=== PATIENT | male | born 1950 | race Hispanic/Latino ===

== ENCOUNTER → 2023-03-08 | Outpatient (CLI) | payer MEDICARE | LOC: RAD 09:31 | PROVIDERS: ATTEND Internal Medicine | DX: R05.9 Cough, unspecified (principal); U07.1 COVID-19 | CPT/HCPCS: 71046 ==

== ENCOUNTER 2023-10-11 19:29 | Emergency (ER) | payer MEDICARE ==
[~2023-10-11] VITALS: Ht 157.5 cm; Wt 61.7 kg
[~2023-10-11 19:29] MED LIST: ATORVASTATIN CA10 MG PO; BUSPIRONE HCL5 MG PO; FLOMAX0.4 MG PO; METFORMIN HCL500 MG PO; NAMENDA5 MG PO; OLMESARTAN-HCT1 EAC2 PO; OMEGA 3 FISH O1 EACH PO; OMEPRAZOLE40 MG PO
[2023-10-11] MEDS ORDERED: IBUPROFEN 600 MG TAB PO STA (19:39)
[2023-10-11] MEDS ORDERED: SODIUM CHLORIDE 0.9% 1000ML 1,000 ML IV ONE ×2 (19:45)
[2023-10-11 20:05] LABS: BASOPHILS % 0.2 % (0.0-1.0); HEMATOCRIT 32.1 % (38.2-49.6); LYMPHOCYTES # (AUTO) 1.1 (1.0-3.2); LYMPHOCYTES % 12.6 % (18.0-39.1); MEAN CORPUSCULAR HEMOGLOBIN 30.3 pg (28-32); MEAN CORPUSCULAR HGB CONC 34.3 g/dL (31-35); MEAN CORPUSCULAR VOLUME 88.4 fL (81-99); MONOCYTES # (AUTO) 0.5 (0.2-0.8); MONOCYTES % 5.6 % (4.4-11.3); NEUTROPHILS # (AUTO) 6.8 (2.1-6.9); NEUTROPHILS % 81.4 % (38.7-80.0); PLATELET COUNT 210 x10e3/uL (140-360); RED BLOOD COUNT 3.63 x10e6/uL (4.3-5.7); RED CELL DISTRIBUTION WIDTH 12.8 % (11.7-14.4); WHITE BLOOD COUNT 8.41 x10e3/uL (4.8-10.8)
[2023-10-11 20:29] LABS: ALBUMIN 3.5 g/dL (3.5-5.0); ANION GAP 16.6 mmol/L (8-16); BILIRUBIN,TOTAL 0.6 mg/dL (0.2-1.2); CALCIUM 8.7 mg/dL (8.4-10.2); CREATININE, SERUM 1.22 mg/dL (0.72-1.25); POTASSIUM 3.6 mmol/L (3.5-5.1); TOTAL PROTEIN 7.1 g/dL (6.5-8.1)
[2023-10-11 21:45] VITALS: O2SAT 97
[2023-10-11] MEDS ORDERED: XOFLUZA80 MG PO (21:54)
== END 2023-10-11 22:09 | disposition home or self-care (01) ==
LOC: ER 19:36
DX: R50.9 Fever, unspecified (principal); J10.1 Influenza due to other identified influenza virus with other respiratory manifestations; R05.9 Cough, unspecified; E11.65 Type 2 diabetes mellitus with hyperglycemia; I10 Essential (primary) hypertension; E78.5 Hyperlipidemia, unspecified; Z20.822 Contact with and (suspected) exposure to COVID-19
CPT/HCPCS: 36415; 71045; 80053; 83605; 84484; 85025; 87040; 87400; 93005; 99284; J0696; J7030; U0002